=== PATIENT | male | born 1950 | race Caucasian/White ===

== ENCOUNTER 2018-05-15 19:31 | Inpatient (IN) ==
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
[2018-05-15] MEDS: Morphine Sulfate Inj 2 MG/ML Vial IV.PUSH PRN ×3 (20:44→23:41)
[2018-05-15] MEDS: Docusate Sodium 100 MG Capsule PO SCH (21:59)
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
[2018-05-16] MEDS: Morphine Sulfate Inj 2 MG/ML Vial IV.PUSH PRN ×7 (02:34→23:38)
[2018-05-16] MEDS ORDERED: Chlorhexidine Gluconate 2% 1 Pack (2 Cloths) TOPICAL SCH (04:00)
[2018-05-16] MEDS ORDERED: Chlorhexidine Gluconate 2% 1 Pack (2 Cloths) TOPICAL PRN (04:00)
[2018-05-16] MEDS: Methocarbamol 500 MG Tablet PO SCH ×3 (07:33→21:49)
[2018-05-16] MEDS: Docusate Sodium 100 MG Capsule PO SCH ×3 (07:33→20:37)
[2018-05-16] MEDS: Famotidine 20 MG Tablet PO SCH ×3 (07:33→20:37)
[2018-05-16] MEDS: Lidocaine 5% Patch T-DERMAL SCH ×2 (07:34→08:41)
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
[2018-05-16] MEDS: Lisinopril 20 MG Tablet PO SCH (08:44)
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
--- NOTE | 2018-05-16 12:51 | ECG ---
Date Performed: 05/16/2018 Time Performed: 10:53:35 PTAGE: 67 years EKG: Sinus rhythm MODERATE INTRAVENTRICULAR CONDUCTION DELAY BORDERLINE ECG NO PREVIOUS TRACING DOCTOR: Farrukh Chu Interpretating Date/Time 05/16/2018 12:51:08
[2018-05-17] MEDS: Morphine Sulfate Inj 2 MG/ML Vial IV.PUSH PRN ×5 (04:01→21:29)
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
[2018-05-17 05:33] LABS: Baso % (Auto) 0.3 % (0.0-2.0); Eos # (Auto) 0.1 th/mm3 (0.0-0.4); Eos % (Auto) 1.1 % (0.0-4.0); Hematocrit 30.6 % (39.0-51.0); Hemoglobin 10.7 gm/dL (13.0-17.0); Lymph # (Auto) 1.2 th/mm3 (1.0-4.8); Mean Corpuscular HGB Conc 35.1 % (32.0-36.0); Mean Corpuscular Hemoglobin 35.4 pg (27.0-34.0); Mean Corpuscular Volume 100.9 fL (80.0-100.0); Mono # (Auto) 1.5 th/mm3 (0.0-0.9); Mono % (Auto) 18.8 % (0.0-8.0); Neut # (Auto) 5.1 th/mm3 (1.8-7.7); Neut % (Auto) 64.8 % (16.0-70.0); Platelet Count 152 th/mm3 (150-450); Red Blood Count 3.03 mil/mm3 (4.50-5.90); Red Cell Distribution Width 13.2 % (11.6-17.2); White Blood Count 7.8 th/mm3 (4.0-11.0)
[2018-05-17 05:49] LABS: Anion Gap 5 meq/L (5-15); Blood Urea Nitrogen 9 mg/dL (7-18); Calcium 8.8 mg/dL (8.5-10.1); Carbon Dioxide 33.4 meq/L (21.0-32.0); Chloride 97 meq/L (98-107); Glomerular Filtration Rate Greater Than 89 mL/min (>89); Glucose,Random 97 mg/dL (74-106); Potassium 3.8 meq/L (3.5-5.1); Sodium 135 meq/L (136-145)
[2018-05-17] MEDS: Methocarbamol 500 MG Tablet PO SCH ×3 (06:15→21:27)
[2018-05-17] MEDS: Famotidine 20 MG Tablet PO SCH ×3 (07:37→21:27)
[2018-05-17] MEDS: Lidocaine 5% Patch T-DERMAL SCH ×2 (07:37→10:42)
[2018-05-17] MEDS: Lisinopril 20 MG Tablet PO SCH ×2 (07:37→10:43)
[2018-05-17] MEDS: Docusate Sodium 100 MG Capsule PO SCH ×3 (07:37→21:27)
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
[2018-05-17] MEDS: Enoxaparin Inj 30 MG/0.3 ML Syringe SQ SCH (21:27)
[2018-05-18] MEDS: Morphine Sulfate Inj 2 MG/ML Vial IV.PUSH PRN ×2 (01:54→06:16)
[2018-05-18 05:49] VITALS: RESP 18
[2018-05-18] MEDS: Methocarbamol 500 MG Tablet PO SCH (06:16)
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
[2018-05-18] MEDS: Lidocaine 5% Patch T-DERMAL SCH (08:11)
[2018-05-18] MEDS: Docusate Sodium 100 MG Capsule PO SCH (08:12)
[2018-05-18] MEDS: Lisinopril 20 MG Tablet PO SCH (08:14)
[2018-05-18] MEDS: Famotidine 20 MG Tablet PO SCH (08:14)
[2018-05-18] MEDS: Enoxaparin Inj 30 MG/0.3 ML Syringe SQ SCH (08:14)
[2018-05-18 09:18] VITALS: BP 147/80; PULSE 83; TEMP 97.6; O2SAT 99
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
== END 2018-05-18 12:06 | disposition home or self-care (01) | DRG 564 ==
LOC: NEPE 19:31 → NEDA 19:55 → N06 21:47
PROVIDERS: ADMIT Surgery; ATTEND Surgery
CPT/HCPCS: 71010; 71045; 80048; 85025; 93005; 94150; 94667; 97161; 97162; 99285; J1650; J2270